=== PATIENT | female | born 1995 | race Caucasian/White ===

== ENCOUNTER 2017-09-16 15:22 | Emergency (ER) | payer OTHER, BC ==
[2017-09-16] MEDS ORDERED: Acetaminophen/HYDROcodone 325-5 MG Tab PO ONE ×2 (15:35→16:12)
[2017-09-16] MEDS ORDERED: Silver Sulfadiazine 1% Crm 400 GM Jar TOP STA (15:35)
--- NOTE | 2017-09-16 15:45 | EDM.PDOC ---
ED HPI GENERAL MEDICAL PROBLEM - General Stated Complaint: BURNED LEFT HAND Time Seen by Provider: 09/16/17 15:41 Source of Information: Reports: Patient History Limitations: Reports: No Limitations - History of Present Illness INITIAL COMMENTS - FREE TEXT/NARRATIVE: 22 y.o.w.f in prev healthy condition came directly from work by PC after she burned her left hand on a hot pizza deleon. There were no blisters, no loss of function of left hand. She has FROM of hand, wrist and fingers. There is a 1st degree burn at her left plam for and and fingers 2-5. No other acute medical issues. No N/V/D BP 126/76 RR 18 Pulse ox 100% on RA pulse 85 Temp 36.8 Onset Date: 09/16/17 Onset Time: 15:00 Duration: Minutes:, Constant Location: Reports: Upper Extremity, Left (palm of left hand) Severity: Mild Left Hand Pain Score (Numeric/FACES): 6 - Related Data Allergies Allergy/AdvReac Type Severity Reaction Status Date / Time No Known Allergies Allergy Verified 09/16/17 15:46 Home Meds: Home Meds Omeprazole 20 mg PO DAILY 09/16/17 [History] ED ROS GENERAL - Review of Systems Review Of Systems: See Below Constitutional: Reports: No Symptoms HEENT: Reports: No Symptoms Respiratory: Reports: No Symptoms Cardiovascular: Reports: No Symptoms Endocrine: Reports: No Symptoms GI/Abdominal: Reports: No Symptoms : Reports: No Symptoms Musculoskeletal: Reports: No Symptoms Skin: Reports: Rash (burn left hand at work on a hot Pizza deleon.) Neurological: Reports: No Symptoms Psychiatric: Reports: No Symptoms Hematologic/Lymphatic: Reports: No Symptoms Immunologic: Reports: No Symptoms ED EXAM, BURN/SMOKE INHALATION - Physical Exam Exam: See Below Exam Limited By: No Limitations General Appearance: Alert, WD/WN, Mild Distress Eye Exam: Bilateral Eye: Normal Inspection Ears (Abbreviated): Normal External Exam Nose: Left Anterior: Normal Inspection, Left Posterior: Normal Inspection, Right Anterior: Normal Inspection, Right Posterior: Normal Inspection Mouth/Throat: No Symptoms Reported Head: No Symptoms Neck: No Symptoms, Normal, Supple Respiratory: No Respiratory Distress, Lungs Clear, Normal Breath Sounds, No Accessory Muscle Use, Chest Non-Tender Cardiovascular: Normal Peripheral Pulses, Regular Rate, Rhythm, No Edema, No Gallop, No JVD, No Murmur, No Rub Peripheral Pulses: 1+: Brachial (R) GI/Abdominal: Normal Bowel Sounds, Soft, Non-Tender, No Organomegaly, No Distention, No Abnormal Bruit, No Mass, Pelvis Stable (Female) Exam: Deferred Rectal Exam: Deferred Back Exam: Normal Inspection, Full Range of Motion Extremities: Normal Range of Motion, Other (1st degree burn left palm fo hand and finger s 2-5) Neurological: Alert, Oriented, CN II-XII Intact, Normal Cognition, Normal Gait Psychiatric: Normal Affect, Normal Mood Skin Exam: Rash (1st degree burn left palm of hand) Lymphatic: No Adenopathy Course - Vital Signs Text/Narrative:: 22 y.o.w.f in prev healthy condition came directly from work by PC after she burned her left hand on a hot pizza deleon. There were no blisters, no loss of function of left hand. She has FROM of hand, wrist and fingers. There is a 1st degree burn at her left plam for and and fingers 2-5. No other acute medical issues. No N/V/D BP 126/76 RR 18 Pulse ox 100% on RA pulse 85 Temp 36.8 PE: WNWD W F came from work after she burned her left hand on a hot pizza deleon Impression: 1st dergee burn left hand (palm), 1% of TBSA, at work Tx: Siver sulfadine, Vicodine, Motin. Reexam: improved Plan: D/C with instructions Last Recorded V/S: Last Vital Signs Temp 36.8 C 09/16/17 15:24 Pulse 72 09/16/17 16:06 Resp 18 09/16/17 16:06 BP 123/85 09/16/17 16:06 Pulse Ox 100 09/16/17 16:06 - Orders/Labs/Meds Meds: Medications Discontinued Medications Generic Name Dose Route Start Last Admin Trade Name Venkata PRN Reason Stop Dose Admin Hydrocodone Bitart/Acetaminophen 1 tab 09/16/17 15:35 09/16/17 15:53 [place] 325-5 Mg PO 09/16/17 15:36 1 tab ONETIME ONE Administration Ibuprofen 600 mg 09/16/17 15:47 09/16/17 15:56 Motrin PO 09/16/17 15:48 Not Given ONETIME ONE Silver Sulfadiazine 1 gm 09/16/17 15:35 09/16/17 16:02 Silvadene 1% Cream 400 Gm TOP 09/16/17 15:36 Not Given ONETIME STA Silver Sulfadiazine 1 gm 09/16/17 15:56 09/16/17 16:01 Silvadene 1% Cream 50 Gm TOP 09/16/17 15:57 1 applic ONETIME ONE Administration Departure - Departure Time of Disposition: 15:57 Disposition: Home, Self-Care 01 Condition: Good Clinical Impression: First degree burn of hand Qualifiers: Encounter type: initial encounter Burn of hand location: palm Laterality: left Qualified Code(s): T23.152A - Burn of first degree of left palm, initial encounter - Discharge Information Instructions: Acetaminophen; Hydrocodone tablets or capsules, Burn Care, Adult , [id number], Silver Sulfadiazine skin cream Referrals: PCP,None [Primary Care Provider] - Forms: ED Return to Work/School Form Additional Instructions: Please take Vicodin for severe pain, tylenol for mod pain. Please apply silver sulfadine to left palm twiced daily for 5 days. Please follow up with your PMD in next 2 days, please come back to the ed if your symptom get worse acutely
[2017-09-16] MEDS ORDERED: Ibuprofen 600 MG Tab PO ONE (15:47)
[2017-09-16] MEDS ORDERED: Silver Sulfadiazine 1% Crm 50 GM Tube TOP ONE ×2 (15:48→15:56)
== END 2017-09-16 16:20 | disposition home or self-care (01) ==
LOC: FB.ED 15:22
DX: T23.152A Burn of first degree of left palm, initial encounter (principal); X19.XXXA Contact with other heat and hot substances, initial encounter; Y99.0 Civilian activity done for income or pay
CPT/HCPCS: 16000; 99282; A9270